=== PATIENT | male | born 1980 | race Caucasian/White ===

== ENCOUNTER 2017-05-03 18:43 | Emergency (ER) | payer BC ==
[2017-05-03 18:54] VITALS: TEMP 97.7
--- NOTE | 2017-05-03 18:58 | EDPHY ---
H & P Stated Complaint: R leg cramp/parasthesia while driving long road trip-knee to foot HPI/ROS: HPI CHIEF COMPLAINT: Right lower extremity tingling HISTORY OF PRESENT ILLNESS: This patient otherwise healthy 37-year-old male significant past medical history for colitis, he is on a cross-country trip in his car he drives a [employer], he lives in [facility] he has been driving back from the [facility] in [facility] through [place] is due to stay at [facility] [place]. Patient has no significant history of DVT or PE. Denies chest pain or shortness of breath. Patient presents emergency room after was seen at an urgent care referred to the emergency room for possible ultrasound of his right lower extremity for possible DVT. Patient denies significant pain or swelling. He states today he noticed some tingling in his right lower extremity goes from the knee down to his foot. No leg weakness. No back pain. No chest pain no shortness of breath no fever. No trauma. No swelling. He states he has been sitting in his car for prolonged periods time he has driven over 3000 miles. States this only started today approximately couple hours ago. Denies weakness. No extreme pain. No trauma. Past Medical History: No medical history except for mild colitis Past Surgical History: Denies recent surgical history Social History: Lives in [facility]. Denies drug use alcohol tobacco. Family History: Noncontributory ROS REVIEW OF SYSTEMS: A comprehensive 10 point review of systems is otherwise negative aside from elements mentioned in the history of present illness. Exam Constitutional appears well nontoxic, triage nursing summary reviewed, vital signs reviewed, awake/alert. Eyes normal conjunctivae and sclera, EOMI, PERRLA. HENT normal inspection, atraumatic, moist mucus membranes, no epistaxis, neck supple/ no meningismus, no raccoon eyes. Respiratory clear to auscultation bilaterally, normal breath sounds, no respiratory distress, no wheezing. Cardiovascular rate normal, regular rhythm, no murmur, no edema, distal pulses normal. Gastrointestinal soft, non-tender, no rebound, no guarding, normal bowel sounds, no distension, no pulsatile mass. Genitourinary no CVA tenderness. Musculoskeletal right lower extremity: Neurovascularly intact. Warm extremity. Good cap refill. Good DP. No significant signs of swelling, no calf tenderness, no popliteal tenderness. No rash. no midline vertebral tenderness, full range of motion, no calf swelling, no tenderness of extremities , no meningismus, good pulses, neurovascularly intact. Skin pink, warm, & dry, no rash, skin atraumatic. Neurologic awake, alert and oriented x 3, AAOx3, moves all 4 extremities equally, motor intact, sensory intact, CN II-XII intact, normal cerebellar, normal vision, normal speech. Psychiatric normal mood/affect. Heme/Lymph/Immune no lymphadenopathy. Differential Diagnosis: Includes but is not limited to in a particular order, peripheral neuropathy from in a seated position for prolonged period of time, DVT which I doubt. Medical Decision Making: Plan for this patient ultrasound Doppler right lower extremity rule out DVT. However clinically on exam there is no leg swelling is neurovascularly intact. Complaining of tingling from his knee down to his foot. This appears to be neuropathy most likely nerve related from prolonged seated position a car. I did explain that I recommend that he gets up frequently out of his car stretches leg. Elevate his leg. I do recommend he takes 48 hours off from driving as I do feel that the car CTs caused him neuropathy or compression of his nerve as leg causing tingling of his distal aspect of his leg. He has no groin pain no abdominal pain no chest pain no back pain. Is neurovascular intact with good pulse, warm extremity. Good cap refill. Re-evaluation: Ultrasound of the right lower extremity The results of the study are negative for DVT. I discussed the results of this study with the radiologist Dr. Jimenez Source: Patient - Personal History Current Tetanus/Diphtheria Vaccine: Unsure Current Tetanus Diphtheria and Acellular Pertussis (TDAP): Unsure - Medical/Surgical History Hx Asthma: No Hx Chronic Respiratory Disease: No Hx Diabetes: No Hx Cardiac Disease: No Hx Renal Disease: No Hx Cirrhosis: No Hx Alcoholism: No Hx HIV/AIDS: No Hx Splenectomy or Spleen Trauma: No Other PMH: colitis. depression - Social History Smoking Status: Never smoked Constitutional: Initial Vital Signs Temperature (C) 36.5 C 05/03/17 18:50 Heart Rate 81 05/03/17 18:50 Respiratory Rate 16 05/03/17 18:50 Blood Pressure 116/70 05/03/17 18:50 O2 Sat (%) 98 05/03/17 18:50 O2 Delivery Mode Room Air Allergies/Adverse Reactions: No Known Allergies Allergy (Unverified 05/03/17 18:49) Home Medications: Medication Instructions Recorded buPROPion 05/03/17 Departure - Departure Disposition: Home, Routine, Self-Care Clinical Impression: Neuropathy Condition: Good Instructions: Peripheral Neuropathy (ED), Paresthesia (ED) Additional Instructions: 1. Recommend stretching her leg every day. Frequent stops. 2. Take 48 hours off from driving. 3. Follow-up with her doctor in [facility] when you return. 4. Return emergency room if any worsening symptoms questions or concerns. Referrals: UNKNOWN,DOCTOR [Other] - As per Instructions
[2017-05-03 20:33] VITALS: BP 103/64; PULSE 107; RESP 18; O2SAT 94
== END 2017-05-03 20:32 | disposition home or self-care (01) ==
DX: G62.9 Polyneuropathy, unspecified (principal)